=== PATIENT | female | born 1960 | race Caucasian/White ===

== ENCOUNTER 2018-03-25 11:19 | Day surgery (SDC) | payer BC ==
[2018-03-24 14:11] VITALS: BMI 34.4
[2018-03-25] MEDS ORDERED: Fentanyl 250 MCG/5 ML VIAL ONE (12:14)
[2018-03-25] MEDS ORDERED: Bupivacaine/Epinephrine 0.25% 30 ML VIAL ONE ×2 (12:37)
[2018-03-25] MEDS ORDERED: Bacitracin Zinc Ointment 30 gm TUBE ONE (12:37)
[2018-03-25 12:38] LABS: Anion Gap 17 mmol/L (10-20); BUN (Urea Nitrogen) 6 mg/dL (9.8-20.1); Calc. Creatinine Clearance 118 mL/min (70-130); Calcium 9.3 mg/dL (7.8-10.44); Carbon Dioxide 24 mmol/L (22-29); Chloride 103 mmol/L (98-107); Estimated GFR-MDRD 71; Glucose 123 mg/dL (70-105); Potassium 3.7 mmol/L (3.5-5.1); Sodium 140 mmol/L (136-145)
[2018-03-25] MEDS ORDERED: CEFAZOLIN/Water 2 GM/20 ML SYRINGE ONE (13:02)
[2018-03-25] MEDS ORDERED: EPINEPHrine 1 MG/ML AMP ONE (13:12)
[2018-03-25] MEDS ORDERED: Dexamethasone 20 MG/5 ML VIAL ONE (14:46)
[2018-03-25] MEDS ORDERED: Ondansetron HCl/PF 4 MG/2 ML Vial ONE (14:46)
[2018-03-25] MEDS ORDERED: Glycopyrrolate 0.2 MG/ML 5 ML SYRINGE ONE (14:46)
[2018-03-25] MEDS ORDERED: PROPOFOL 200 MG/20 ML VIAL ONE (14:46)
[2018-03-25] MEDS ORDERED: Lidocaine 1% PF 5 ML VIAL ONE (14:46)
--- NOTE | 2018-03-25 15:18 | EKG ---
Test Reason : PREOP Blood Pressure : / mmHG Vent. Rate : 086 BPM Atrial Rate : 086 BPM P-R Int : 134 ms QRS Dur : 078 ms QT Int : 362 ms P-R-T Axes : 035 008 023 degrees QTc Int : 433 ms Normal sinus rhythm Normal ECG When compared with ECG of 23-DEC-2010 12:58, No significant change was found Confirmed by IAM SAVAGE MD ([id number]) on 03/25/2018 3:18:28 PM Referred By: SHAY Confirmed By:IAM SAVAGE MD
--- NOTE | 2018-03-25 22:53 | OP ---
PREOPERATIVE DIAGNOSES: 1. 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 2. Squamous cell carcinoma, left leg superior (C44.729). 3. 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 4. 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 5. Squamous cell carcinoma, left back (C44.529). PROCEDURES PERFORMED: 1. Wide excision squamous cell carcinoma, left leg inferior (5.5 cm including adequate margins) (116 06). 2. Full thickness skin graft, left leg inferior (20 cm2) (57955). 3. Wide excision skin cancer, left leg superior (1.8 cm including adequate margins) (53805). 4. Wide excision skin cancer, left arm (3.2 cm including adequate margins) (17899). 5. Wide excision skin cancer, right forearm, 2.3 cm including adequate margins (87777). 6. Wide excision skin cancer, left back (2.4 cm including adequate margins (22969). 7. Intermediate closure, left leg superior, left arm, right forearm, and left back (24 cm) (40649). PROCEDURE: Following induction of adequate anesthesia, the patient was prepped and draped in the usu al sterile fashion in supine position. Attention was first turned to the left leg inferior. The les ion was widely excised including adequate margins. The lesion was widely excised. Frozen section an alysis came back as margins positive. This gross lesion was then widely excised. The original excis ion had been central portion of it, which had been previously biopsied and is precancerous. The resu ltant defect cannot be closed primarily. A split-thickness skin graft reconstruction was elected. It was harvested from the ipsilateral thigh , a 12 one thousandths of an inch and meshed at one and a half to one. It was then secured to the wo und edges with pilar. Attention was turned to the left leg superior. This lesion was widely excised. Frozen section papa sis came back as margins clear. The defect was able to be closed, taking out dog ears superiorly and inferiorly. Closure was achieved with 3-0 Monocryl suture and pilar. Attention was turned to the left arm. The lesion was widely excised. The defect was then closed wit h 3-0 PDS suture and 3-0 Monocryl suture. Attention was turned to the right forearm. The lesion was widely excised including dog ears medially and laterally and then closed with 3-0 PDS suture and 3-0 Monocryl suture. Attention was turned to the back. This lesion was elliptically excised with the defect being closed with 3-0 PDS suture and 3-0 Monocryl suture. The skin graft was dressed with a bulky sterile dressin g and other dressings. Incisions were closed with Dermabond. The patient tolerated the procedure we ll.
== END 2018-03-25 17:30 | disposition home or self-care (01) ==
LOC: SDC 11:19
PROVIDERS: ATTEND Plastic Surgery
PROC: 0HB6XZZ Excision of Back Skin, External Approach (ICD-10-PCS; principal; 2018-03-25)
PROC: 0HRLX73 Replacement of Left Lower Leg Skin with Autologous Tissue Substitute, Full Thickness, External Approach (ICD-10-PCS; principal; 2018-03-25)
PROC: 0HBDXZZ Excision of Right Lower Arm Skin, External Approach (ICD-10-PCS; principal; 2018-03-25)
PROC: 0HBLXZZ Excision of Left Lower Leg Skin, External Approach (ICD-10-PCS; principal; 2018-03-25)
DX: C44.719 Basal cell carcinoma of skin of left lower limb, including hip (principal); D04.62 Carcinoma in situ of skin of left upper limb, including shoulder; D04.61 Carcinoma in situ of skin of right upper limb, including shoulder; C44.729 Squamous cell carcinoma of skin of left lower limb, including hip; C44.629 Squamous cell carcinoma of skin of left upper limb, including shoulder; C44.622 Squamous cell carcinoma of skin of right upper limb, including shoulder; C44.529 Squamous cell carcinoma of skin of other part of trunk; Z79.899 Other long term (current) drug therapy
CPT/HCPCS: 36415; 80048; 88305; 88331; 88332; 93005; 93010; J0171; J1100; J2001; J2405; J2704; J3010